=== PATIENT | female | born 1970 | race Two or more races ===

== ENCOUNTER 2019-07-22 00:16 | Emergency (ER) | payer OTHER ==
[~2019-07-22] VITALS: Ht 154.9 cm; Wt 45.4 kg
[2019-07-22] MEDS ORDERED: DOLOGEN CAPLET1 EACH PO (02:23)
[2019-07-22] MEDS ORDERED: TUSNEL LIQUID178 ML PO (02:23)
[2019-07-22] MEDS ORDERED: OSEL75CA PO (02:23)
== END 2019-07-22 02:31 | disposition home or self-care (01) ==
LOC: ER 00:16
DX: B33.8 Other specified viral diseases (principal)

== ENCOUNTER 2019-10-09 14:42 | Outpatient (CLI) | payer OTHER ==
[~2019-10-09 14:42] MED LIST: DOLOGEN CAPLET1 EACH PO; OSEL75CA PO; TUSNEL LIQUID178 ML PO
== END 2019-10-09 14:46 | disposition home or self-care (01) ==
LOC: RAD 14:42
DX: Z13.83 Encounter for screening for respiratory disorder NEC (principal)

== ENCOUNTER → 2020-01-23 | Emergency (ER) | payer OTHER ==
[~2020-01-23] VITALS: Ht 154.9 cm; Wt 49.0 kg
[~2020-01-23] MED LIST changes: +KETO10TA2 PO
== END | disposition home or self-care (01) ==
LOC: ER 02:20
DX: S22.42XA Multiple fractures of ribs, left side, initial encounter for closed fracture (principal); S60.222A Contusion of left hand, initial encounter; S80.02XA Contusion of left knee, initial encounter; W01.198A Fall on same level from slipping, tripping and stumbling with subsequent striking against other object, initial encounter; Y93.89 Activity, other specified; Y92.89 Other specified places as the place of occurrence of the external cause; Y99.8 Other external cause status

== ENCOUNTER → 2020-06-02 | Outpatient (CLI) | payer OTHER | END | disposition home or self-care (01) | LOC: TOM 05-30 13:45 | DX: J34.2 Deviated nasal septum (principal) ==

== ENCOUNTER 2020-10-07 09:17 | Outpatient (CLI) | payer OTHER | END 2020-10-07 09:51 | disposition home or self-care (01) | LOC: MAMO-SONO 09:17 | PROVIDERS: ATTEND Obstetrics & Gynecology | DX: N64.51 Induration of breast (principal) ==

== ENCOUNTER 2022-09-22 14:41 | Outpatient (CLI) | payer OTHER | END 2022-09-22 14:52 | disposition home or self-care (01) | LOC: MAMO-SONO 14:41 | PROVIDERS: ATTEND General Practice | DX: Z12.31 Encounter for screening mammogram for malignant neoplasm of breast (principal) ==

== ENCOUNTER 2023-12-13 13:29 | Outpatient (CLI) | payer OTHER | END 2023-12-13 13:34 | disposition home or self-care (01) | LOC: MAMO-SONO 13:29 | PROVIDERS: ATTEND General Practice | DX: Z12.31 Encounter for screening mammogram for malignant neoplasm of breast (principal) ==

== ENCOUNTER 2025-05-08 15:34 | Emergency (ER) | payer OTHER ==
[~2025-05-08] VITALS: Ht 152.4 cm; Wt 52.2 kg
[2025-05-08] MEDS ORDERED: DEXAMETHASONE SODIUM PHOSPHATE 4 MG/ML VIAL IM STA (16:09)
[2025-05-08] MEDS ORDERED: CEFTRIAXONE SODIUM 1,000 MG VIAL IM STA (16:09)
[2025-05-08 16:11] VITALS: BP 145/81; O2SAT 99
[2025-05-08] MEDS ORDERED: DIPHTH,PERTUSS(ACELL),TET VAC 0.5 ML VIAL IM ONE (16:15)
[2025-05-08] MEDS ORDERED: AMOX-CLAV 875-1 EACH PO (18:02)
== END 2025-05-08 18:49 | disposition home or self-care (01) ==
LOC: ER 15:34
DX: S68.110A Complete traumatic metacarpophalangeal amputation of right index finger, initial encounter (principal); W26.0XXA Contact with knife, initial encounter; Y93.89 Activity, other specified; Y92.89 Other specified places as the place of occurrence of the external cause; Y99.8 Other external cause status
CPT/HCPCS: 73130; 90471; 90714; J1670